=== PATIENT | male | born 1935 | race Caucasian/White ===

== ENCOUNTER → 2019-04-17 | Outpatient (CLI) | payer MEDICARE, MEDICAID ==
[~2019-04-17] MED LIST: AMLO5TAB66 PO; ASPI-1484 PO; ATEN50TA PO; ATOR10TA84 PO; METF-446 PO; OLME40TA8 PO
== END | disposition home or self-care (01) ==
LOC: RADPV 09:58
PROVIDERS: ATTEND Internal Medicine Cardiovascular Disease
DX: I25.10 Atherosclerotic heart disease of native coronary artery without angina pectoris (principal); Z95.4 Presence of other heart-valve replacement; I08.8 Other rheumatic multiple valve diseases
CPT/HCPCS: 93306